=== PATIENT | female | born 1940 | race Caucasian/White ===

== ENCOUNTER 2020-11-18 08:43 | Outpatient (CLI) | payer OTHER, SELFPAY ==
--- NOTE | ~2020-11-18 | DEXA_ITS ---
Bone Density Report Name: Lexi Garcias Age: 80 Sex: Female Ethnicity: White Date of : 1940 Indication: monitoring treatment; height loss; postmenopausal Referring Provider: Janice Morgan Study: Bone densitometry was performed. Exam Date: November 18, 2020 Accession number: [id number] Bone Density: Region BMD T-score Z-score Classification AP Spine (L1, L4) 1.002 -0.3 2.4 Normal Femoral Neck (Left) 0.656 -1.7 0.7 Osteopenia Total Hip (Left) 0.844 -0.8 1.4 Normal Total Hip Bilateral Avg 0.832 -0.9 1.3 Normal Femoral Neck (Right) 0.660 -1.7 0.7 Osteopenia Total Hip (Right) 0.818 -1.0 1.2 Normal World Health Organization criteria for BMD impression classify patients as: Normal (T-score at or above -1.0), Osteopenia (T-score between -1.0 and -2.5), or Osteoporosis (T-score at or below -2.5). 10-year Fracture Risk: FRAX not reported because: Treated for osteoporosis Previous Exams: Region Exam Age BMD T-score BMD Change BMD Change Date g/cm2 vs Baseline vs Previous AP Spine(L1, L4) 11/18/2020 80 1.002 -0.3 0.080(8.7%)# 0.033(3.4%)* 08/04/2017 77 0.969 -0.6 0.047(5.1%)# 0.064(7.1%)* 08/21/2014 74 0.905 -1.2 -0.017(-1.9%)# -0.017(-1.9%)# 05/19/2006 66 0.922 -1.0 Total Hip(Left) 11/18/2020 80 0.844 -0.8 -0.017(-2.0%)# -0.056(-6.2%)* 08/04/2017 77 0.899 -0.4 0.038(4.5%)# 0.019(2.2%) 08/21/2014 74 0.880 -0.5 0.019(2.2%)# 0.019(2.2%)# 05/19/2006 66 0.861 -0.7 Total Hip(Right) 11/18/2020 80 0.818 -1.0 -0.034(-3.9%)# -0.050(-5.7%)* 08/04/2017 77 0.868 -0.6 0.016(1.9%)# 0.052(6.4%)* 08/21/2014 74 0.815 -1.0 -0.036(-4.2%)# -0.036(-4.2%)# 05/19/2006 66 0.852 -0.7 *Denotes significance at 95% confidence level, LSC for AP Spine = 0.022 g/cm2, LSC for Total Hip = 0.027 g/cm2 Clinical Information Provided by Patient: Is being treated for osteoporosis Has used the following medications: Fosamax (i.e. alendronate) Patient maximum height was 69 Menopause Age: 48 No regular weight bearing exercise Drinks caffeinated beverages Onset of menses at age 13 Number of children 1 Impression: The patient has low bone mass, based on the Left Femoral Neck T-score. The BMD for the Total Hip(Left) decreased, changing by -6.2% since the last DXA exam. The BMD for the Total Hip(Right) decreased, changing by -5.7% since the last DXA exam. Discussion: SIGNIFICANT BONE LOSS OBSERVED.
== END 2020-11-18 08:44 | disposition home or self-care (01) ==
PROVIDERS: PCP Family Medicine; Visit Provider Family Medicine
DX: Z78.0 Asymptomatic menopausal state (principal); M85.852 Other specified disorders of bone density and structure, left thigh; M85.851 Other specified disorders of bone density and structure, right thigh
CPT/HCPCS: 77080

== ENCOUNTER → 2021-03-03 13:10 | Outpatient (CLI) | payer OTHER, SELFPAY ==
--- NOTE | ~2021-03-03 | XR_ITS ---
XR facial bones min 3V DATE: 03/03/2021 14:19 INDICATION: Contusion of the head TECHNIQUE: jessi Christianson, submental vertical and lateral views COMPARISON: None FINDINGS: No facial fracture is detected. The frontozygomatic sutures are intact. Orbital rims and wa lls appear preserved. The zygomatic arches appear normal. The paranasal sinuses and mastoid air cells are normally developed and aerated. IMPRESSION: Negative Reviewed, dictated and finalized at location A. IMPRESSION: Negative
== END ==
PROVIDERS: PCP Family Medicine; Visit Provider Nurse Practitioner Family
DX: S00.83XA Contusion of other part of head, initial encounter (principal); X58.XXXA Exposure to other specified factors, initial encounter
CPT/HCPCS: 70150

== ENCOUNTER 2023-12-13 08:38 | Outpatient (CLI) | payer OTHER, SELFPAY ==
--- NOTE | ~2023-12-13 | XR_ITS ---
XR humerus RT Ordering provider: Janice Morgan MD History: . fall 3 days ago distal right humerus pain . Comparison: None. FINDINGS: BONES: No acute fracture or dislocation. 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 SOFT TISSUES: Normal. IMPRESSION: No acute osseous abnormality right humerus. Reviewed, dictated and finalized at location A.
--- NOTE | ~2023-12-13 | XR_ITS ---
XR facial bones min 3V Ordering provider: Janice Morgan MD History: . fall 3 days ago pain and bruising right side of face . Comparison: March 08 and 2020 FINDINGS: BONES: No acute fracture as visualized. The nasal bone is not demonstrated in the lateral view. PARANASAL SINUSES: Well aerated. Left nasal septal deviation. SOFT TISSUES: Normal. IMPRESSION: No visualized acute facial fracture. Consider follow up CT scan if there is continued concern for occ ult fracture. Reviewed, dictated and finalized at location A. IMPRESSION: No visualized acute facial fracture. Consider follow up CT scan if there is con tinued concern for occult fracture.
--- NOTE | ~2023-12-13 | XR_ITS ---
XR ribs BI 3V w CXR 2V Ordering provider: Janice Morgan MD History: . fall 3 days ago bilat rib pain . Comparison: 11/23/2005 FINDINGS: BONES: Possible fracture of the left ninth rib. MEDIASTINUM: The cardiac silhouette is not enlarged. LUNGS: No effusions or infiltrates. No pneumothorax. SOFT TISSUES: Normal. Degenerative changes of the spine. Osteoarthritic changes of the right shoulder. IMPRESSION: Possible fracture of the left ninth rib. No acute cardiopulmonary pathology. Reviewed, dictated and finalized at location A.
== END 2023-12-13 08:39 ==
PROVIDERS: PCP Family Medicine; Visit Provider Family Medicine
DX: S00.83XA Contusion of other part of head, initial encounter (principal); X58.XXXA Exposure to other specified factors, initial encounter; R07.81 Pleurodynia; M79.601 Pain in right arm
CPT/HCPCS: 70150; 71046; 71110; 73060